=== PATIENT | male | born 1945 | race Caucasian/White ===

== ENCOUNTER 2017-11-30 09:50 | Emergency (ER) | payer MEDICARE | END 2017-11-30 10:27 | disposition home or self-care (01) | LOC: SCSER 09:50 | DX: J06.9 Acute upper respiratory infection, unspecified (principal) | CPT/HCPCS: 99283 ==

== ENCOUNTER 2018-08-31 10:11 | Emergency (ER) | payer MEDICARE ==
[2018-08-31 11:00] LABS: #Basophils 0.1 thou/uL (0.0-0.2); #Eosinphils 0.1 thou/uL (0.0-0.7); #Lymphocytes 1.1 thou/uL (1.20-3.40); #Monocytes 0.3 thou/uL (0.11-0.59); #Neutrophils 2.9 thou/uL (1.40-6.50); %Basophils 1.4 % (0.0-1.0); %Eosinophils 2.3 % (0.0-10.0); %Lymphocytes 24.5 % (21.0-51.0); %Neutrophils 64.8 % (42.0-75.0); Hemoglobin 14.7 g/dL (14.0-18.0); Mean Corpuscular HGB CONC 34.6 g/dL (32.0-36.0); Mean Platelet Volume 6.8 fL (7.4-10.4); Platelet Count 233 thou/uL (130-400); RBC Distribution Width 11.2 % (11.5-14.5); Red Blood Cell (RBC) Count 5.24 mill/uL (4.70-6.10); White Blood Cell (WBC) Count 4.5 thou/uL (4.8-10.8)
[2018-08-31 11:16] LABS: ALT (SGPT) 26 U/L (8-55); AST (SGOT) 28 U/L (5-34); Albumin 4.3 g/dL (3.4-4.8); Alkaline Phosphatase 67 U/L (40-150); Anion Gap 11 mmol/L (10-20); BUN (Urea Nitrogen) 10 mg/dL (8.4-25.7); Bilirubin, Total 0.5 mg/dL (0.2-1.2); CKMB 1.6 ng/mL (0-6.6); Calc. Creatinine Clearance 0 mL/min (70-130); Calcium 9.4 mg/dL (7.8-10.44); Carbon Dioxide 27 mmol/L (23-31); Chloride 107 mmol/L (98-107); Estimated GFR-MDRD 66; Globulin 3.1 g/dL (2.4-3.5); Glucose 89 mg/dL (83-110); Potassium 4.2 mmol/L (3.5-5.1); Protein, Total 7.4 g/dL (5.8-8.1); Sodium 141 mmol/L (136-145); Troponin I Less than 0.010 ng/mL (< 0.028)
--- NOTE | 2018-08-31 11:25 | RAD ---
CHEST ONE VIEW: History: Chest pain. Comparison: None. FINDINGS: Lungs are clear of pneumothorax or effusion. Heart size is enlarged. No acute osseous abnormality. Mo derate degenerative changes of the left acromioclavicular joint. IMPRESSION: Mild cardiomegaly. POS: [facility]
== END 2018-08-31 11:54 | disposition home or self-care (01) ==
LOC: SCSER 10:11
DX: R07.89 Other chest pain (principal); N40.0 Benign prostatic hyperplasia without lower urinary tract symptoms; E78.5 Hyperlipidemia, unspecified; I10 Essential (primary) hypertension; Z87.891 Personal history of nicotine dependence
CPT/HCPCS: 36415; 71045; 80053; 82553; 83690; 83880; 84484; 85025; 93005

== ENCOUNTER 2018-12-09 10:38 | Emergency (ER) | payer MEDICARE ==
[2018-12-09 12:54] LABS: Bilirubin Negative (Negative); Blood, Urine Negative (Negative); Clarity Clear (Clear); Glucose, Urine (Dipstick) Negative (Negative); Leukocyte Negative (Negative); Nitrite Negative (Negative); Protein, Urine (Dipstick) Negative (Neg-Trace); Urobilinogen 0.2 mg/dL (0.2-1.0)
== END 2018-12-09 13:23 | disposition home or self-care (01) ==
LOC: SCSER 10:38
DX: M54.5 Low back pain (principal); K21.9 Gastro-esophageal reflux disease without esophagitis; E78.5 Hyperlipidemia, unspecified; Z87.891 Personal history of nicotine dependence
CPT/HCPCS: 81003; 99283

== ENCOUNTER 2019-01-16 15:42 | Observation (INO) | payer MEDICARE ==
[2019-01-16 16:24] LABS: #Basophils 0.1 thou/uL (0.0-0.2); #Eosinphils 0.1 thou/uL (0.0-0.7); #Lymphocytes 1.7 thou/uL (1.20-3.40); #Monocytes 0.4 thou/uL (0.11-0.59); #Neutrophils 3.8 thou/uL (1.40-6.50); %Basophils 0.8 % (0.0-1.0); %Lymphocytes 27.8 % (21.0-51.0); %Monocytes 6.6 % (0.0-10.0); %Neutrophils 62.7 % (42.0-75.0); Hemoglobin 14.9 g/dL (14.0-18.0); Mean Corpuscular HGB CONC 34.1 g/dL (32.0-36.0); Mean Corpuscular Hemoglobin 28.8 pg (27.0-31.0); Mean Corpuscular Volume 84.4 fL (78.0-98.0); Mean Platelet Volume 7.3 fL (7.4-10.4); Platelet Count 267 thou/uL (130-400); RBC Distribution Width 12.2 % (11.5-14.5); Red Blood Cell (RBC) Count 5.16 mill/uL (4.70-6.10); White Blood Cell (WBC) Count 6.1 thou/uL (4.8-10.8)
--- NOTE | 2019-01-16 16:30 | RAD ---
FRONTAL VIEW CHEST: Date: 01/16/19 COMPARISON: 08/31/18. INDICATION: Chest pain. FINDINGS: There is prominence of the cardiac silhouette, accentuated by portable technique, and stable appearin g. There is no lobar consolidation, effusion, or pneumothorax. Lungs are hyperinflated. There is osse ous degenerative change. IMPRESSION: 1. COPD. 2. Persistent enlargement of the cardiac silhouette. Correlate clinically. POS: [facility]
[2019-01-16 16:41] LABS: ALT (SGPT) 22 U/L (8-55); AST (SGOT) 23 U/L (5-34); Albumin 4.3 g/dL (3.4-4.8); Alkaline Phosphatase 78 U/L (40-150); Anion Gap 12 mmol/L (10-20); BUN (Urea Nitrogen) 10 mg/dL (8.4-25.7); Bilirubin, Total 0.6 mg/dL (0.2-1.2); Calc. Creatinine Clearance 0 mL/min (70-130); Calcium 9.3 mg/dL (7.8-10.44); Carbon Dioxide 27 mmol/L (23-31); Chloride 106 mmol/L (98-107); Estimated GFR-MDRD 73; Globulin 2.8 g/dL (2.4-3.5); Glucose 78 mg/dL (83-110); Lipase 37 U/L (8-78); Potassium 3.9 mmol/L (3.5-5.1); Protein, Total 7.1 g/dL (5.8-8.1); Sodium 141 mmol/L (136-145)
[2019-01-16] MEDS ORDERED: Pantoprazole 40 MG VIAL ONE (16:53)
[2019-01-16] MEDS ORDERED: Aspirin Chewable 81 MG TAB ONE (16:53)
[2019-01-16] MEDS ORDERED: Nitroglycerin 2% Ointment 1 INCH/1 GM Packet ONE (16:53)
[2019-01-17] MEDS ORDERED: Nitroglycerin 2% Ointment 1 INCH/1 GM Packet TOP SCH (00:45)
[2019-01-17 01:08] VITALS: BMI 25.9
[2019-01-17] MEDS ORDERED: Acetaminophen 325 MG TAB PO PRN (05:08)
[2019-01-17] MEDS ORDERED: ADENOSINE 60 MG/20 ML VIAL ONE (09:49)
--- NOTE | 2019-01-17 12:40 | HP ---
CHIEF COMPLAINT: Chest pain. HISTORY OF PRESENT ILLNESS: The patient is a 73-year-old male with 1-day history of chest pain, which was not associated with shortness of breath, nausea, vomiting, or clammy skin. Apparently, he was working outside and he had this chest discomfort going on for whole day and it was associated with a lot of belching. 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 His marine surveyor Dr. Wolf and tool repairer bench, Dr. Hartmann. The patient came to the emergency room and was admitted for further evaluation of his chest pain. At the time of my visit, he does not have complaints about any chest discomfort. He is doing well, not offering any complaints. PAST MEDICAL HISTORY: Positive for; 1. Carroll esophagus. 2. History of right bundle branch block. PAST SURGICAL HISTORY: Prostate surgery x3. ALLERGIES: PENICILLIN. MEDICATIONS: 1. Lisinopril. 2. Amlodipine. 3. Pantoprazole. 4. Statin. FAMILY HISTORY: Father of lung cancer at the age of 70. Mother was 90 when she passed. She had coronary artery disease and CABG x3. REVIEW OF SYSTEMS: All 14 systems were reviewed and only those symptoms mentioned in HPI are positive and rest are negative. PHYSICAL EXAMINATION: VITAL SIGNS: Blood pressure is 139/76, pulse is 60, temperature is 98.6, O2 saturation 95% on room air. HEAD: His head is atraumatic and normocephalic. Eyes are PERRLA. Sclerae are nonicteric. Oral mucosa is moist. NECK: Supple. LUNGS: Clear. HEART: S1 and S2 normal. No S3. No S4. No any murmur. ABDOMEN: Soft and nontender. Bowel sounds are present. No organomegaly. EXTREMITIES: No clubbing, cyanosis, or edema. He has good pulses on both tibialis posterior and dorsalis pedis arteries similar bilaterally. NEUROLOGIC: He is alert and oriented x3. There is no any motor or sensory deficits present. Cranial nerves are intact. LABORATORY DATA: Showed normal CBC, normal chemistry except for glucose which is 76. Two sets of troponin I 0.014 and 0.010. The rest of chemistry within normal limits. Chest x-ray showed just COPD and some enlargement of his cardiac silhouette. EKG showed normal sinus rhythm with ventricular rate of 65 beats per minute. No ischemic changes. Right bundle branch block, which is chronic. IMPRESSION: 1. Chest pain. Acute coronary syndrome was ruled out. 2. Carroll esophagus. 3. History of right bundle branch block. 4. Hyperlipidemia. 5. Hypertension. PLAN: Admission for observation. Condition is fair. Activity bedrest and bathroom privileges. IV Hep-Lock. Nuclear stress test to be done today. He is n.p.o. We should be able to finish this test tonight. We will continue his home medications. We will do SCDs and Lovenox for his DVT prophylaxis. The case was discussed with Dr. Wolf, his marine surveyor. Job ID: [id number]
[2019-01-17 14:00] VITALS: BP 147/80; TEMP 97.9
--- NOTE | 2019-01-17 15:53 | NM ---
MYOCARDIAL PERFUSION STUDY: DATE: 01/17/2019. HISTORY: Chest pain. RADIOPHARMACEUTICALS: 28.8 mCi Technetium 99m sestamibi, IV at stress, and 9 mCi Technetium 99m sestamibi, IV at rest. MEDICATIONS: 16.2 mL (48.6 mg) adenosine, IV. FINDINGS: There is a very tiny defect seen at the ventricular apex on stress acquisition which is thought to be related to soft tissue attenuation. No significant reversible defect is identified. The gated imag es demonstrate hypokinesis involving the septum and inferior left ventricular wall. The calculated l eft ventricular ejection fraction is 62%. IMPRESSION: 1. No significant reversible defect seen to suggest ischemia. 2. Mild hypokinesis involving the septum and inferior left ventricular wall. 3. Normal left ventricular ejection fraction of 62%. POS: [facility]
[2019-01-17] MEDS ORDERED: Rosuvastatin 20 MG TAB PO SCH (21:00)
--- NOTE | 2019-01-17 22:15 | DIS ---
DATE OF ADMISSION: 01/16/2019 DATE OF DISCHARGE: 01/17/2019 DIAGNOSES AT THE TIME OF DISCHARGE: 1. Chest pain, acute coronary syndrome was ruled out. This is most likely gastrointestinal symptoms related, resolved. 2. Carroll's esophagus. 3. History of right bundle branch block, chronic. HOSPITAL COURSE: The patient is a 73-year-old male admitted to the hospital with 1-day history of chest pain, not associated with any shortness of breath, nausea, vomiting, or clammy skin, but associated with a lot of belching. Apparently, he has a history of Carroll's esophagus and he is on pantoprazole at home. Recently, he was seen by Dr. Wolf, his computer aided design drafter, and echocardiogram was done. The patient was started on small dose of baby aspirin at this time. Apparently, the echocardiogram showed some valvular leak of mitral and aortic valves, but the patient was not very sure about those findings. The patient got admitted to the hospital for further evaluation of his chest pain. At the time of admission, his white cell count was normal, normal hemoglobin and hematocrit. Two sets of troponins were within normal limits. Chest x-ray showed COPD with some enlargement of his cardiac silhouette and EKG showed normal sinus rhythm without any ischemic changes with right bundle branch block, which was chronic. The patient was admitted to hospital. He underwent a nuclear stress test after the case was discussed with his computer aided design drafter, Dr. Wolf. The final report of his stress test came back showing LVEF of 62%, mild hypokinesia involving the septum and inferior left ventricular wall. No significant reversible defect was seen to suggest ischemia. PHYSICAL EXAMINATION: GENERAL: The patient is doing well. VITAL SIGNS: His blood pressure is 147/80, pulse is 70, temperature is 97.9, respirations 18, and O2 saturation 95% on room air. LUNGS: Clear. HEART: S1 and S2 normal. No S3. No S4. No any murmur. ABDOMEN: Soft, nontender, and nondistended. EXTREMITIES: No clubbing, cyanosis, or edema. NEUROLOGICAL: He is alert and oriented x4. There is no any sensory or motor deficit present. Cranial nerves are intact. The patient was discharged home with recommendation to follow up with Dr. Wolf in the next few days and with his travel pt in 2 weeks. MEDICATIONS: At the time of discharge, 1. Crestor 40 mg at bedtime. 2. Pantoprazole 40 mg twice a day. 3. Lisinopril 40 mg once a day. 4. Aspirin 81 mg once a day. 5. Amlodipine 5 mg once a day. He will stay on heart healthy diet with low salt. Activities as tolerated. The patient is seen and examined before he is discharged home and the discharge is less than 30 minutes. Job ID: [id number]
[2019-01-18] MEDS ORDERED: Enoxaparin Sodium 40 MG/0.4 ML SYRINGE SC SCH (09:00)
[2019-01-18] MEDS ORDERED: Aspirin 81 mg Enteric Coated Tablet PO SCH (09:00)
[2019-01-18] MEDS ORDERED: Amlodipine 5 MG TAB PO SCH (09:00)
[2019-01-18] MEDS ORDERED: Lisinopril 20 MG TAB PO SCH (09:00)
== END 2019-01-17 18:19 | disposition home or self-care (01) ==
LOC: SCSER 15:42 → ERHOLD 18:21 → 2SW 23:51
PROVIDERS: ADMIT Internal Medicine; ATTEND Internal Medicine
DX: R07.9 Chest pain, unspecified (principal); K22.70 Barrett's esophagus without dysplasia; I10 Essential (primary) hypertension; E78.5 Hyperlipidemia, unspecified; Z79.82 Long term (current) use of aspirin; Z79.899 Other long term (current) drug therapy; Z88.0 Allergy status to penicillin
CPT/HCPCS: 71045; 78452; 80053; 83690; 84484 ×2; 85025; 93005; 93017; 96374; 99285; A9500; G0378 ×2; 36415; C9113; J0153

== ENCOUNTER 2021-08-08 08:42 | Outpatient (CLI) | payer MEDICARE ==
[2021-08-08 10:21] LABS: Hemoglobin 14.6 g/dL (13.5-17.5); Mean Corpuscular HGB CONC 33.1 g/dL (32.0-36.0); Mean Corpuscular Hemoglobin 28.7 pg (27.0-33.0); Mean Corpuscular Volume 86.8 fl (81.2-95.1); Mean Platelet Volume 9.3 fl (7.4-10.4); Platelet Count 306 10x3/uL (150-450); Red Blood Cell (RBC) Count 5.08 10x6/uL (4.32-5.72); White Blood Cell (WBC) Count 6.2 10x3/uL (3.5-10.5)
[2021-08-08 11:40] LABS: Anion Gap 14 mmol/L (10-20); BUN (Urea Nitrogen) 14 mg/dL (8.4-25.7); Calc. Creatinine Clearance 0 mL/min (70-130); Calcium 10.1 mg/dL (7.8-10.44); Carbon Dioxide 26 mmol/L (23-31); Chloride 105 mmol/L (98-107); Glucose 94 mg/dL (83-110); Potassium 4.6 mmol/L (3.5-5.1); Sodium 140 mmol/L (136-145)
[2021-08-09 00:23] LABS: SARS-CoV-2 PCR by NAA Not Detected (NotDetected)
== END 2021-08-08 08:43 | disposition home or self-care (01) ==
LOC: LABBT 08:42
PROVIDERS: ATTEND Neurological Surgery
DX: Z01.812 Encounter for preprocedural laboratory examination (principal); M48.02 Spinal stenosis, cervical region; M54.12 Radiculopathy, cervical region; Z20.822 Contact with and (suspected) exposure to COVID-19
CPT/HCPCS: 80048; 85027; U0003; U0005

== ENCOUNTER 2021-08-13 06:18 | Day surgery (SDC) | payer MEDICARE ==
[2021-08-12 11:16] VITALS: BMI 25.7
[2021-08-13] MEDS ORDERED: ceFAZolin 2 GM/Dextrose 50 ML IVPB ONE (06:40)
[2021-08-13] MEDS ORDERED: Levofloxacin 500 mg/D5W 100 ml Premix Bag ONE (06:58)
[2021-08-13] MEDS ORDERED: Clindamycin/D5W 900 mg/50 ml Premix Bag ONE (06:58)
[2021-08-13] MEDS ORDERED: Thrombin 5000 UNITS/5 ML VIAL ONE (07:10)
[2021-08-13] MEDS ORDERED: Fentanyl 250 MCG/5 ML VIAL ONE (07:14)
[2021-08-13] MEDS ORDERED: Dexamethasone 20 MG/5 ML VIAL ONE (08:00)
[2021-08-13] MEDS ORDERED: ePHEDrine 50 MG/ML VIAL ONE (08:00)
[2021-08-13] MEDS ORDERED: Lidocaine 1% PF 5 ML VIAL ONE (08:00)
[2021-08-13] MEDS ORDERED: PROPOFOL 200 MG/20 ML VIAL ONE (08:00)
[2021-08-13] MEDS ORDERED: PHENYLEPHRINE-NS 100 MCG/ML 10 ML SYRINGE ONE (08:00)
[2021-08-13] MEDS ORDERED: Rocuronium Bromide 10 MG/ML (10ML VIAL) ONE (08:00)
[2021-08-13] MEDS ORDERED: Ondansetron PF 4 MG/2 ML Vial ONE (08:00)
[2021-08-13] MEDS ORDERED: SUGAMMADEX SODIUM 200 MG/2 ML VIAL ONE (09:38)
[2021-08-13] MEDS ORDERED: Tamsulosin HCl 0.4 MG CAP ONE (10:28)
[2021-08-13] MEDS ORDERED: HYDROcodone/Acetaminophen 5/325 mg Tablet ONE (12:48)
== END 2021-08-13 13:00 | disposition home or self-care (01) ==
LOC: SDC 06:18
PROVIDERS: ATTEND Neurological Surgery
PROC: 0RG20A0 Fusion of 2 or more Cervical Vertebral Joints with Interbody Fusion Device, Anterior Approach, Anterior Column, Open Approach (ICD-10-PCS; principal; 2021-08-13)
DX: M47.12 Other spondylosis with myelopathy, cervical region (principal); M48.02 Spinal stenosis, cervical region; I10 Essential (primary) hypertension; K21.9 Gastro-esophageal reflux disease without esophagitis; E78.5 Hyperlipidemia, unspecified; N40.0 Benign prostatic hyperplasia without lower urinary tract symptoms; I25.10 Atherosclerotic heart disease of native coronary artery without angina pectoris; E78.00 Pure hypercholesterolemia, unspecified; I48.0 Paroxysmal atrial fibrillation; I45.2 Bifascicular block; I08.0 Rheumatic disorders of both mitral and aortic valves; I49.3 Ventricular premature depolarization; I47.1 Supraventricular tachycardia; Z79.01 Long term (current) use of anticoagulants; Z79.1 Long term (current) use of non-steroidal anti-inflammatories (NSAID); Z79.82 Long term (current) use of aspirin; Z79.899 Other long term (current) drug therapy; Z88.0 Allergy status to penicillin; Z88.5 Allergy status to narcotic agent; Z91.018 Allergy to other foods
CPT/HCPCS: 76000; 93005; 93010; C1713; C1776; J0690; J1100; J1956; J2405; J2704; J3010; J3490

== ENCOUNTER 2023-03-23 07:48 | Outpatient (CLI) | payer MEDICARE | END 2023-03-23 07:49 | disposition home or self-care (01) | LOC: ULT 07:48 | PROVIDERS: ATTEND Family Medicine | DX: N28.1 Cyst of kidney, acquired (principal); E04.1 Nontoxic single thyroid nodule; N40.0 Benign prostatic hyperplasia without lower urinary tract symptoms | CPT/HCPCS: 76536; 76770 ==

== ENCOUNTER 2024-04-21 05:33 | Day surgery (SDC) | payer MEDICARE ==
[2024-04-14 08:16] VITALS: BMI 26.4
[2024-04-21] MEDS ORDERED: EPINEPHrine 1 MG/ML VIAL ONE (06:09)
[2024-04-21] MEDS ORDERED: Thrombin 5000 UNITS/5 ML VIAL ONE (06:09)
[2024-04-21] MEDS ORDERED: Bupivacaine PF 0.5% 30 ML VIAL ONE (06:10)
[2024-04-21] MEDS ORDERED: LevoFLOXacin D5W 500 mg (100 mL) BAG ONE (06:15)
[2024-04-21] MEDS ORDERED: Clindamycin/D5W 900 mg/50 ml Premix Bag ONE (06:16)
[2024-04-21] MEDS ORDERED: PROPOFOL 20 ML ONE (06:46)
[2024-04-21] MEDS ORDERED: SUGAMMADEX SODIUM 200 MG/2 ML VIAL ONE ×2 (06:46→08:12)
[2024-04-21] MEDS ORDERED: fentaNYL PF 100 MCG/2 ML SYRINGE ONE (06:46)
[2024-04-21] MEDS ORDERED: Dexamethasone 20 MG/5 ML VIAL ONE (06:50)
[2024-04-21] MEDS ORDERED: Ondansetron PF 4 MG/2 ML Vial ONE (06:50)
[2024-04-21] MEDS ORDERED: GLYCOPYRROLATE/PF 0.2 MG/ML VIAL ONE ×2 (06:50→07:35)
[2024-04-21] MEDS ORDERED: PHENYLEPHRINE-NS 100 MCG/ML 10 ML SYRINGE ONE ×2 (06:50→07:38)
[2024-04-21] MEDS ORDERED: ePHEDrine Sulfate 50 MG/10 ML VIAL ONE (07:27)
[2024-04-21] MEDS ORDERED: Sodium Chloride 0.9% 100 ML ONE (07:52)
[2024-04-21] MEDS ORDERED: Phenylephrine 10 MG/ML VIAL ONE (07:53)
[2024-04-21] MEDS ORDERED: HYDROmorphone 0.5 MG/0.5 ML SYRINGE ONE (08:42)
[2024-04-21] MEDS ORDERED: fentaNYL 50 mcg/mL 1 mL Vial ONE (08:45)
[2024-04-21] MEDS ORDERED: Tamsulosin HCl 0.4 MG CAP ONE (08:59)
[2024-04-21] MEDS ORDERED: HYDROcodone/Acetaminophen 5/325 mg Tablet ONE (09:42)
== END 2024-04-21 22:20 | disposition home or self-care (01) ==
LOC: SDC 05:33
PROVIDERS: ATTEND Neurological Surgery
PROC: 01NB0ZZ Release Lumbar Nerve, Open Approach (ICD-10-PCS; principal; 2024-04-21)
DX: M48.062 Spinal stenosis, lumbar region with neurogenic claudication (principal); I10 Essential (primary) hypertension; E78.5 Hyperlipidemia, unspecified; N40.0 Benign prostatic hyperplasia without lower urinary tract symptoms; K21.9 Gastro-esophageal reflux disease without esophagitis; Z88.0 Allergy status to penicillin; Z88.5 Allergy status to narcotic agent; Z87.891 Personal history of nicotine dependence
CPT/HCPCS: 63047; C1713; J0171; J3010; J3490; J0665; J1100; J1170; J1956; J2371; J2405; J2704

== ENCOUNTER 2024-04-22 11:12 | Inpatient (IN) | payer MEDICARE ==
[2024-04-22 11:44] LABS: #Basophils Less than 0.03 10x3/uL (0.0-0.2); #Eosinphils Less than 0.03 10x3/uL (0.0-0.7); %Basophils 0.1 % (0.0-1.0); %Eosinophils 0.1 % (0.0-10.0); %Lymphocytes 6.1 % (21.0-51.0); %Monocytes 7.1 % (0.0-10.0); %Neutrophils 86.2 % (42.0-75.0); Hematocrit 39.7 % (42.0-52.0); Hemoglobin 13.8 g/dL (14.0-18.0); Mean Corpuscular HGB CONC 34.8 g/dL (32.0-36.0); Mean Corpuscular Hemoglobin 29.7 pg (27.0-31.0); Mean Corpuscular Volume 85.4 fL (78.0-98.0); Mean Platelet Volume 9.4 fL (7.4-10.4); Platelet Count 301 10x3/uL (130-400); RBC Distribution Width 12.8 % (11.5-14.5); Red Blood Cell (RBC) Count 4.65 mill/uL (4.70-6.10)
[2024-04-22 11:59] LABS: ALT (SGPT) 16 U/L (8-55); AST (SGOT) 27 U/L (5-34); Albumin 4.1 g/dL (3.4-4.8); Alkaline Phosphatase 73 U/L (40-110); Anion Gap 15 mmol/L (10-20); BUN (Urea Nitrogen) 16 mg/dL (8.4-25.7); Calc. Creatinine Clearance 0 mL/min (70-130); Calcium 9.5 mg/dL (7.8-10.44); Carbon Dioxide 19 mmol/L (23-31); Chloride 100 mmol/L (98-107); Estimated GFR 57; Globulin 2.7 g/dL (2.4-3.5); Glucose 100 mg/dL (83-110); Potassium 4.3 mmol/L (3.5-5.1); Protein, Total 6.8 g/dL (5.8-8.1); Sodium 130 mmol/L (136-145)
[2024-04-22 12:12] LABS: Troponin I 0.019 ng/mL (< 0.028)
[2024-04-22 16:45] VITALS: BMI 27.1
[2024-04-22] MEDS ORDERED: Acetaminophen/Codeine 30-300mg Tablet PO PRN (16:53)
[2024-04-22] MEDS ORDERED: Acetaminophen 500 MG TAB PO SCH (18:00)
[2024-04-22] MEDS: Acetaminophen 325 MG TAB PO SCH (18:22)
[2024-04-22] MEDS: Lisinopril 20 MG TAB PO SCH (18:23)
[2024-04-22] MEDS: Enoxaparin 100 MG (1 mL) SYRINGE SC SCH (20:45)
[2024-04-22] MEDS: Rosuvastatin 20 MG TAB PO SCH (20:45)
[2024-04-22] MEDS: Acetaminophen/Codeine 30-300mg Tablet PO PRN (20:45)
[2024-04-22] MEDS ORDERED: Amlodipine 5 MG TAB PO SCH (21:00)
[2024-04-23 00:25] LABS: Magnesium 2.1 mg/dL (1.6-2.6)
[2024-04-23 04:36] LABS: #Basophils Less than 0.03 10x3/uL (0.0-0.2); %Basophils 0.3 % (0.0-1.0); %Eosinophils 0.6 % (0.0-10.0); %Lymphocytes 16.8 % (21.0-51.0); %Monocytes 9.5 % (0.0-10.0); %Neutrophils 72.5 % (42.0-75.0); Hematocrit 39.5 % (42.0-52.0); Hemoglobin 13.1 g/dL (14.0-18.0); Mean Corpuscular HGB CONC 33.2 g/dL (32.0-36.0); Mean Corpuscular Hemoglobin 29.3 pg (27.0-31.0); Mean Corpuscular Volume 88.4 fL (78.0-98.0); Mean Platelet Volume 9.9 fL (7.4-10.4); Platelet Count 260 10x3/uL (130-400); RBC Distribution Width 13.2 % (11.5-14.5); Red Blood Cell (RBC) Count 4.47 mill/uL (4.70-6.10)
[2024-04-23 04:48] LABS: ALT (SGPT) 14 U/L (8-55); AST (SGOT) 23 U/L (5-34); Albumin 3.4 g/dL (3.4-4.8); Alkaline Phosphatase 59 U/L (40-110); Anion Gap 10 mmol/L (10-20); BUN (Urea Nitrogen) 18 mg/dL (8.4-25.7); Bilirubin, Total 0.7 mg/dL (0.2-1.2); Calc. Creatinine Clearance 64 mL/min (70-130); Calcium 9.1 mg/dL (7.8-10.44); Carbon Dioxide 25 mmol/L (23-31); Chloride 111 mmol/L (98-107); Estimated GFR 60; Globulin 2.4 g/dL (2.4-3.5); Glucose 96 mg/dL (83-110); Potassium 4.4 mmol/L (3.5-5.1); Protein, Total 5.8 g/dL (5.8-8.1); Sodium 142 mmol/L (136-145)
[2024-04-23] MEDS: Finasteride 5 MG TAB PO SCH (08:16)
[2024-04-23] MEDS: Pantoprazole DR 40 MG TAB PO SCH (08:16)
[2024-04-23] MEDS: Tamsulosin HCl 0.4 MG CAP PO SCH (08:16)
[2024-04-23] MEDS: Lisinopril 20 MG TAB PO SCH (08:17)
[2024-04-23] MEDS: Clindamycin 150 MG CAP PO SCH (17:11)
[2024-04-23] MEDS ORDERED: Polyethylene Glycol 3350 17 GM Packet PO PRN (19:46)
[2024-04-23] MEDS: Polyethylene Glycol 3350 17 GM Packet PO SCH (20:07)
[2024-04-24 06:01] LABS: #Basophils 0.04 10x3/uL (0.0-0.2); %Basophils 0.5 % (0.0-1.0); %Eosinophils 1.3 % (0.0-10.0); %Lymphocytes 15.7 % (21.0-51.0); %Monocytes 8.3 % (0.0-10.0); Hematocrit 37.8 % (42.0-52.0); Hemoglobin 12.5 g/dL (14.0-18.0); Mean Corpuscular HGB CONC 33.1 g/dL (32.0-36.0); Mean Corpuscular Hemoglobin 30.1 pg (27.0-31.0); Mean Corpuscular Volume 91.1 fL (78.0-98.0); Mean Platelet Volume 10.1 fL (7.4-10.4); Platelet Count 259 10x3/uL (130-400); RBC Distribution Width 13.1 % (11.5-14.5); Red Blood Cell (RBC) Count 4.15 mill/uL (4.70-6.10)
[2024-04-24 06:23] LABS: ALT (SGPT) 17 U/L (8-55); AST (SGOT) 24 U/L (5-34); Albumin 3.3 g/dL (3.4-4.8); Alkaline Phosphatase 60 U/L (40-110); Anion Gap 13 mmol/L (10-20); BUN (Urea Nitrogen) 16 mg/dL (8.4-25.7); Bilirubin, Total 0.7 mg/dL (0.2-1.2); Calc. Creatinine Clearance 68 mL/min (70-130); Calcium 8.7 mg/dL (7.8-10.44); Carbon Dioxide 25 mmol/L (23-31); Chloride 107 mmol/L (98-107); Estimated GFR 68; Globulin 2.6 g/dL (2.4-3.5); Glucose 95 mg/dL (83-110); Potassium 3.7 mmol/L (3.5-5.1); Protein, Total 5.9 g/dL (5.8-8.1); Sodium 141 mmol/L (136-145)
[2024-04-24] MEDS ORDERED: Acetaminophen 325 MG TAB PO PRN (07:51)
[2024-04-24] MEDS: Senokot S 8.6-50 MG TAB PO SCH ×2 (09:16→18:36)
[2024-04-24] MEDS: Potassium Chloride 20 MEQ TAB PO SCH (09:18)
[2024-04-24] MEDS: Polyethylene Glycol 3350 17 GM Packet PO SCH (09:18)
[2024-04-24] MEDS: Acetaminophen/Codeine 30-300mg Tablet PO PRN (11:45)
[2024-04-24] MEDS: Lactulose 20 GM (30 mL) UDCUP PO SCH (18:36)
[2024-04-24] MEDS: tiZANidine HCl 4 MG TAB PO PRN (20:28)
[2024-04-25 03:43] LABS: #Basophils 0.04 10x3/uL (0.0-0.2); %Basophils 0.5 % (0.0-1.0); %Eosinophils 2.2 % (0.0-10.0); %Lymphocytes 23.4 % (21.0-51.0); %Monocytes 8.9 % (0.0-10.0); %Neutrophils 64.5 % (42.0-75.0); Hematocrit 36.8 % (42.0-52.0); Hemoglobin 12.3 g/dL (14.0-18.0); Mean Corpuscular HGB CONC 33.4 g/dL (32.0-36.0); Mean Corpuscular Hemoglobin 29.9 pg (27.0-31.0); Mean Corpuscular Volume 89.3 fL (78.0-98.0); Mean Platelet Volume 9.8 fL (7.4-10.4); Platelet Count 237 10x3/uL (130-400); RBC Distribution Width 12.7 % (11.5-14.5); Red Blood Cell (RBC) Count 4.12 mill/uL (4.70-6.10)
[2024-04-25 03:59] LABS: ALT (SGPT) 21 U/L (8-55); AST (SGOT) 22 U/L (5-34); Albumin 3.2 g/dL (3.4-4.8); Alkaline Phosphatase 61 U/L (40-110); Anion Gap 13 mmol/L (10-20); BUN (Urea Nitrogen) 14 mg/dL (8.4-25.7); Bilirubin, Total 0.9 mg/dL (0.2-1.2); Calc. Creatinine Clearance 60 mL/min (70-130); Carbon Dioxide 24 mmol/L (23-31); Chloride 107 mmol/L (98-107); Estimated GFR 58; Globulin 2.5 g/dL (2.4-3.5); Glucose 102 mg/dL (83-110); Potassium 4.1 mmol/L (3.5-5.1); Protein, Total 5.7 g/dL (5.8-8.1); Sodium 140 mmol/L (136-145)
[2024-04-25] MEDS ORDERED: Vancomycin 1.5 GM in Sodium Chloride 0.9% 250 ML 300 ML IVPB SCH (13:00)
[2024-04-25] MEDS ORDERED: Clindamycin/D5W 900 mg/50 ml Premix Bag ONE (15:25)
[2024-04-25] MEDS ORDERED: Lidocaine 1% (PF) 30 ML VIAL ONE (15:26)
[2024-04-25] MEDS ORDERED: Gentamicin 80 MG/2 ML VIAL ONE (15:26)
[2024-04-25] MEDS: Vancomycin (BATCH) 1.5 GM in Premix 1 BAG IVPB SCH (15:47)
[2024-04-25] MEDS ORDERED: fentaNYL 50 mcg/mL 1 mL Vial ONE (16:04)
[2024-04-25] MEDS ORDERED: Phenylephrine 40 MG/NS 250 ML 250 ML ONE (16:05)
[2024-04-25] MEDS ORDERED: Glycopyrrolate 0.2 MG/ML 5 ML SYRINGE ONE (16:35)
[2024-04-25] MEDS ORDERED: Ondansetron PF 4 MG/2 ML Vial ONE (16:35)
[2024-04-25] MEDS ORDERED: PROPOFOL 200 MG/20 ML VIAL ONE (16:35)
[2024-04-25] MEDS ORDERED: ePHEDrine Sulfate 50 MG/10 ML VIAL ONE (17:00)
[2024-04-26 05:05] LABS: #Basophils Less than 0.03 10x3/uL (0.0-0.2); #Eosinphils Less than 0.03 10x3/uL (0.0-0.7); %Basophils 0.2 % (0.0-1.0); %Lymphocytes 8.8 % (21.0-51.0); %Monocytes 5.7 % (0.0-10.0); %Neutrophils 84.8 % (42.0-75.0); Hematocrit 36.9 % (42.0-52.0); Hemoglobin 12.2 g/dL (14.0-18.0); Mean Corpuscular HGB CONC 33.1 g/dL (32.0-36.0); Mean Corpuscular Hemoglobin 29.7 pg (27.0-31.0); Mean Corpuscular Volume 89.8 fL (78.0-98.0); Mean Platelet Volume 9.7 fL (7.4-10.4); Platelet Count 279 10x3/uL (130-400); RBC Distribution Width 12.8 % (11.5-14.5); Red Blood Cell (RBC) Count 4.11 mill/uL (4.70-6.10)
[2024-04-26 05:22] LABS: ALT (SGPT) 19 U/L (8-55); AST (SGOT) 23 U/L (5-34); Alkaline Phosphatase 59 U/L (40-110); Anion Gap 13 mmol/L (10-20); BUN (Urea Nitrogen) 14 mg/dL (8.4-25.7); Bilirubin, Total 0.5 mg/dL (0.2-1.2); Calc. Creatinine Clearance 71 mL/min (70-130); Calcium 8.7 mg/dL (7.8-10.44); Carbon Dioxide 23 mmol/L (23-31); Chloride 108 mmol/L (98-107); Estimated GFR 71; Globulin 2.5 g/dL (2.4-3.5); Glucose 150 mg/dL (83-110); Potassium 4.5 mmol/L (3.5-5.1); Protein, Total 5.5 g/dL (5.8-8.1); Sodium 139 mmol/L (136-145)
[2024-04-26] MEDS: Acetaminophen/Codeine 30-300mg Tablet PO PRN (10:19)
[2024-04-26 12:28] VITALS: BP 143/68; TEMP 98.2
== END 2024-04-26 13:51 | disposition home or self-care (01) | DRG 243 ==
LOC: ERS 11:12 → 2SW 13:06 → OBSVTOIN 14:22
PROVIDERS: ADMIT Student in an Organized Health Care Education/Training Program; ATTEND Student in an Organized Health Care Education/Training Program
PROC: 3E033XZ Introduction of Vasopressor into Peripheral Vein, Percutaneous Approach (ICD-10-PCS; principal; 2024-04-25)
PROC: 0JH606Z Insertion of Pacemaker, Dual Chamber into Chest Subcutaneous Tissue and Fascia, Open Approach (ICD-10-PCS; 2024-04-25)
PROC: 02H63JZ Insertion of Pacemaker Lead into Right Atrium, Percutaneous Approach (ICD-10-PCS; 2024-04-25)
PROC: 02HK3JZ Insertion of Pacemaker Lead into Right Ventricle, Percutaneous Approach (ICD-10-PCS; 2024-04-25)
PROC: 3E0102A Introduction of Anti-Infective Envelope into Subcutaneous Tissue, Open Approach (ICD-10-PCS; 2024-04-25)
DX: I44.1 Atrioventricular block, second degree (principal); E87.1 Hypo-osmolality and hyponatremia; I50.22 Chronic systolic (congestive) heart failure; I48.0 Paroxysmal atrial fibrillation; I11.0 Hypertensive heart disease with heart failure; R31.9 Hematuria, unspecified; K59.00 Constipation, unspecified; I45.10 Unspecified right bundle-branch block; K22.70 Barrett's esophagus without dysplasia; M48.062 Spinal stenosis, lumbar region with neurogenic claudication; N40.1 Benign prostatic hyperplasia with lower urinary tract symptoms; R33.9 Retention of urine, unspecified; Z88.0 Allergy status to penicillin; Z88.8 Allergy status to other drugs, medicaments and biological substances; Z88.5 Allergy status to narcotic agent; Z79.899 Other long term (current) drug therapy; Z87.891 Personal history of nicotine dependence
CPT/HCPCS: 33208; 36415; 71045; 80053; 83735; 83880; 84484; 85025; 93005; 93010; 93306; 93970; 97139; C1713; C1785; C1894; C1898; J0171; J0665; J1100; J1170; J1580; J1650; J1956; J2001; J2371; J2405; J2704; J3010; J3370; J3490

== ENCOUNTER 2024-07-20 06:43 | Day surgery (SDC) | payer MEDICARE ==
[2024-07-10 12:23] VITALS: BMI 25.0
[2024-07-20] MEDS ORDERED: Sodium Chloride 0.9% 100 ML ONE (11:48)
[2024-07-20] MEDS ORDERED: cefTRIAXone (ROCEPHIN) 2 GM VIAL ONE (11:48)
[2024-07-20] MEDS ORDERED: cefTRIAXone (ROCEPHIN) 1 GM VIAL ONE (11:49)
[2024-07-20] MEDS ORDERED: PROPOFOL 20 ML ONE (11:58)
[2024-07-20] MEDS ORDERED: fentaNYL 50 mcg/mL 1 mL Vial ONE ×3 (11:58→15:18)
[2024-07-20] MEDS ORDERED: Lidocaine 1% PF 5 ML VIAL ONE (12:00)
[2024-07-20] MEDS ORDERED: Rocuronium Bromide 10 MG/ML (10ML VIAL) ONE (12:42)
[2024-07-20] MEDS ORDERED: SUGAMMADEX SODIUM 200 MG/2 ML VIAL ONE (14:34)
[2024-07-20] MEDS ORDERED: Ondansetron PF 4 MG/2 ML Vial ONE (14:34)
[2024-07-20] MEDS ORDERED: Oxybutynin 5 MG TAB ONE (15:07)
[2024-07-20] MEDS ORDERED: Phenazopyridine HCl 100 MG TAB ONE (15:08)
[2024-07-20] MEDS ORDERED: Morphine 2 MG/ML VIAL ONE ×2 (15:31→16:13)
[2024-07-20] MEDS ORDERED: Ketorolac Tromethamine 0.5% Ophth Soln 5 ML BOT OP PRN (18:22)
[2024-07-20] MEDS ORDERED: Gentamicin Ophth Soln 0.3% 5 ml Bottle FS SCH (21:00)
== END 2024-07-20 19:45 | disposition home or self-care (01) ==
LOC: SDC 06:43
PROVIDERS: ATTEND Urology
PROC: 0VT08ZZ Resection of Prostate, Via Natural or Artificial Opening Endoscopic (ICD-10-PCS; principal; 2024-07-20)
DX: N40.1 Benign prostatic hyperplasia with lower urinary tract symptoms (principal); R33.9 Retention of urine, unspecified; I48.91 Unspecified atrial fibrillation; Z79.899 Other long term (current) drug therapy
CPT/HCPCS: 52630; A4333; J0696; J2272; J2405; J2704; J3010; 88305